=== PATIENT | female | born 1970 | race Caucasian/White ===

== ENCOUNTER → 2025-02-11 | Outpatient (CLI) | payer BC ==
[2025-02-11 13:11] LABS: BUN 13 mg/dl (9-23); SGPT/ALT 29 U/L (5-49)
== END | disposition home or self-care (01) ==
LOC: ZRHCWE 12:20
PROVIDERS: ATTEND Nurse Practitioner Family
DX: I10 Essential (primary) hypertension (principal); E11.65 Type 2 diabetes mellitus with hyperglycemia; E78.5 Hyperlipidemia, unspecified; E03.9 Hypothyroidism, unspecified; Z00.00 Encounter for general adult medical examination without abnormal findings